=== PATIENT | male | born 1975 | race Caucasian/White ===

== ENCOUNTER 2017-12-24 10:22 | Day surgery (SDC) | payer BC ==
[~2017-12-24] VITALS: Ht 177.8 cm; Wt 74.4 kg
[2017-12-24] VITALS (10 sets, daily range): BP systolic 116–155; BP diastolic 73–95
[~2017-12-24 10:22] MED LIST: NKM
--- NOTE | 2017-12-24 11:06 | Anethesia Preoperative Eval ---
Anesthesia Pre-op PMH/ROS General Date of Evaluation: Dec 24, 2017 Anesthesiologist: Abad ASA Score: ASA 2 Mallampati Score Class I : Soft palate, uvula, fauces, pillars visible Class II: Soft palate, uvula, fauces visible Class III: Soft palate, base of uvula visible Class IV: Only hard plate visible Mallampati Classification: Class II Surgeon: Sarahy Diagnosis: Deviated Septum Surgical Procedure: Septoplasty, SMR BIlateral Anesthesia History: none Family History: no anesthesia problems Allergies: Coded Allergies: CEFOTETAN (Verified Allergy, Intermediate, 12/23/17) HIVES IBUPROFEN (Verified Allergy, Mild, 12/23/17) FACIAL WELTS PENICILLINS (Verified Allergy, Unknown, 12/23/17) CANNOT REMEMBER REACTION Medications: see eMAR Patient NPO?: Yes NPO Date: Dec 23, 2017 NPO Time: 22:00 Past Medical History Cardiovascular: Denies: HTN, CAD, HI, valve dz, arrhythmia, other Pulmonary: Denies: asthma, COPD, YUSEF, other Gastrointestinal/Genitourinary: Reports: other - h/o kidney cancer s/p partial nephrectomy; Denies: GERD, CRI, ESRD Neurologic/Psychiatric: Denies: dementia, CVA, depression/anxiety, TIA, other Endocrine: Denies: DM, hypothyroidism, steroids, other HEENT: Denies: cataract (L), cataract (R), glaucoma, S[place]O (L), S[place] (R), other Hematology/Immune: Denies: anemia, DVT, bleeding disorder, other Musculoskeletal/Integumentary: Denies: OA, RA, DJD, DDD, edema, other PSxH Narrative: appy, left partial nephrectomy Anesthesia Pre-op Phys. Exam Physician Exam see chart Constitutional: NAD Cardiovascular: RRR Respiratory: CTA Airway Exam Mallampati Score: Class II MO: full ROM: full Teeth: intact Anesthesia Pre-op A/P Labs see chart Studies Pre-op Studies: EKG - sr Risk Assessment & Plan Assessment: ASA II Plan: GA Status Change Before Surgery: No Pre-Antibiotics Drug: Levaquin 500mg Given Within 1 Hr of Incision: Yes Della Adkins MD Dec 24, 2017 11:06
[2017-12-24] MEDS ORDERED: Lidocaine 1% MPF 10mg/ml 5ml ONE (11:07)
[2017-12-24] MEDS ORDERED: Propofol 200mg/20ml IV ONE (11:07)
[2017-12-24] MEDS ORDERED: fentaNYL 100 mcg/2 mL IV ONE (11:07)
[2017-12-24] MEDS ORDERED: Midazolam 2mg/2ml Inj ONE (11:08)
--- NOTE | 2017-12-24 12:08 | Pre-Procedure Note/Attestation ---
Pre-Procedure Note/Attestation Complete Prior to Procedure Planned Procedure: not applicable Procedure Narrative: nasal obstruction unresponsive to medication, scheduled for septoplasty with bilateral inferior turbinectomies with intramural coagulation Indications for Procedure Pre-Operative Diagnosis: septal deviation, bilateral hypertrophied inferior turbinates Attestation I attest that I discussed the nature of the procedure; its benefits; risks and complications; and alternatives (and the risks and benefits of such alternatives ), prior to the procedure, with the patient (or the patient's legal door to door sales representative). I attest that, if there was a reasonable possibility of needing a blood transfusion, the patient (or the patient's legal door to door sales representative) was given the [place] [facility] [employer] [facility] standardized written summary, pursuant to the [place] Blood Safety Act ([place] Health and Safety Code # 1645, as amended). I attest that I re-evaluated the patient just prior to the surgery and that there has been no change in the patient's H&P, except as documented below: Zak Weathers MD Dec 24, 2017 12:08
[2017-12-24] MEDS ORDERED: Zemuron 50mg/5ml Inj IV ONE (12:36)
[2017-12-24] MEDS ORDERED: Lidocaine 1% 10mg/ml/Epi 0.005mg/ml 30ml vial INJ ONE (12:38)
[2017-12-24] MEDS ORDERED: Kenalog-40 1ml Vial ONE (12:38)
[2017-12-24] MEDS ORDERED: Oxymetazoline 0.05% Na Spray 30ml NASAL ONE (12:38)
[2017-12-24] MEDS ORDERED: Betadine 10% Oint 30gm TOPIC ONE (12:38)
[2017-12-24] MEDS ORDERED: Bacitracin Oint 15gm Tube TOPIC ONE (12:38)
[2017-12-24] MEDS ORDERED: Cocaine HCl 4% 4ml vial TOPIC ONE (12:43)
[2017-12-24] MEDS ORDERED: Lidocaine 1% 10mg/ml/EPI 0.01mg/ml 50ml INJ ONE (12:57)
[2017-12-24] MEDS ORDERED: LR 1000ml 1,000 ML IVLG SCH (13:08)
[2017-12-24] MEDS ORDERED: Hydromorphone 0.5mg/0.5ml inj IVP PRN (13:15)
[2017-12-24] MEDS ORDERED: Midazolam 2mg/2ml Inj IVP PRN (13:15)
[2017-12-24] MEDS ORDERED: DiphenhydrAMINE 50mg/ml Inj IVP PRN (13:15)
[2017-12-24] MEDS ORDERED: LORazepam Inj 2mg/ml 1ml IV PRN (13:15)
[2017-12-24] MEDS ORDERED: Metoclopramide 10mg/2ml Inj IVP PRN (13:15)
[2017-12-24] MEDS ORDERED: fentaNYL 100 mcg/2 mL IV PRN (13:15)
[2017-12-24] MEDS ORDERED: NS Irrig 1000ml IRRIG ONE (13:19)
--- NOTE | 2017-12-24 15:02 | Brief Operative Note ---
Immediate Post Operative Note Operative Note Pre-op Diagnosis: septal deviation, bilateral hypertrophied inferior turbinates Procedure: septoplasty, bilateral inferior turbinectomies with intramural coagulation Post-op Diagnosis: same as pre-op Surgeon: Zak Weathers Anesthesiologist: Abad Anesthesia: general, MAC Specimen: yes - septum Complications: none Condition: stable Fluids: ringers lactate Estimated Blood Loss: minimal Drains: none Packing: telfa Implant(s) used?: No Zak Weathers MD Dec 24, 2017 15:02
[2017-12-24] MEDS ORDERED: Glycopyrrolate 0.2mg/ml 1ml Vial ONE (15:08)
--- NOTE | 2017-12-24 15:19 | Immediate Post-Op Evaluation ---
Immediate Post-Op Evalulation Immediate Post-Op Evalulation Procedure: Septoplasty TURBS Date of Evaluation: Dec 24, 2017 Time of Evaluation: 15:05 IV Fluids: 1.2L Blood Products: 0 Estimated Blood Loss: min Urinary Output: 0 Blood Pressure Systolic: 155 Blood Pressure Diastolic: 95 Pulse Rate: 75 Respiratory Rate: 15 O2 Sat by Pulse Oximetry: 96 Temperature (Fahrenheit): 97.7 Pain Score (1-10): 0 Nausea: No Vomiting: No Complications 0 Patient Status: awake, reacts, patent, none Hydration Status: adequate Drug: LEvaqiom 500mg Given Within 1 Hr of Incision: Yes Time Given: 12:50 Della dAkins MD Dec 24, 2017 15:19
--- NOTE | 2017-12-24 15:20 | 48 Hour Post Anesthesia Eval ---
Post Anesthesia Evaluation Procedure: Septoplasty TURBS Date of Evaluation: Dec 24, 2017 Airway: patent Nausea: No Vomiting: No Pain Intensity: 0 Hydration Status: adequate Cardiopulmonary Status: at baseline Mental Status/LOC: patient returned to baseline Post-Anesthesia Complications: 0 Follow-up care needed: ready to discharge Della Adkins MD Dec 24, 2017 15:20
--- NOTE | 2017-12-26 22:45 | Operative Note - Dictated ---
DATE OF OPERATION: 12/24/2017 SURGEON: Zak Weathers M.D. ANESTHESIOLOGIST: Dr. Valdovinos. PREOPERATIVE DIAGNOSES: 1. Septal deviation. 2. Bilateral hypertrophied inferior turbinates. POSTOPERATIVE DIAGNOSES: 1. Septal deviation. 2. Bilateral hypertrophied inferior turbinates. PROCEDURES: 1. Septoplasty. 2. Bilateral inferior turbinectomies with intramural coagulation. INDICATIONS FOR SURGERY: The patient is a 42-year-old male, who has complained of severe right nasal obstruction greater than the left, unresponsive to medication. His examination revealed a severe right septal deviation and hypertrophied right inferior turbinate to such extent that the septum was pushing up against the turbinate and trapping mucus within the right nasal cavity. The left inferior turbinate was also significantly hypertrophied contributing to the patient's left nasal airway obstruction. PROCEDURE AND FINDINGS: The patient was brought to the operating room while premedicated and have received preoperative antibiotics. He was then placed in supine position on the operating room table. After the patient underwent satisfactory endotracheal intubation, he was given IV sedation. The nasal cavity was then sprayed with 0.25% Ajay-Synephrine. Sterile Q-tips saturated with Betadine were used to remove the trapped intranasal mucus as well as sterilize the intranasal cavity. Approximately 20 mL of 1% Xylocaine with 1:100,000 epinephrine were used to inject the nasal and septal frameworks. Less than 200 mg of cocaine were used in nasal packing. It was of note that the right side of the septum was fixed to the underlying cartilage making it very difficult to inject. The patient was then prepped and draped in usual fashion. After the lapse for vasoconstriction, the packing was removed. A right inferior septal incision was then made and a right mucoperichondrial mucoperiosteal flap was eventually elevated running into thick scar tissue which was caught in between areas of cartilage which may represent for a prior septal hematoma. An incision was made between the cartilage and bony septum and a left mucoperiosteal flap was then elevated. That portion of overriding obstructing perpendicular plate of the ethmoid and vomer bone were incised in strips and from many attachments and removed from the field of operation. A similar procedure was performed on the cartilaginous septum which was hard to incise as part of the cartilaginous septum had been ossified. The cartilaginous resection maintained good anterior and inferior support. An obstruction spur was removed with mallet and chisel technique. Re-examination now revealed a septum being in more midline physiologic position for breathing. Bipolar intramural coagulation of both inferior turbinates was then performed. An incision was performed and the undersurface of both inferior turbinates and mucosa were stripped to the underlying bone. The inferior turbinates were then outfractured and small bones removed from the pocket. Re-examination now revealed the patient to have a good bilateral nasal airway. All blood was suctioned from the nasopharynx area. A 4-0 plain was used to close the septal incision as well as to splint the septum. Telfa coated with bacitracin ointment was secured intranasally with suture of 3-0 silk to the Telfa and the procedure was terminated. The patient tolerated the procedure well and left the operating room in satisfactory condition. Estimated blood loss was 30 mL. Sponge and needle count were correct. Zak Weathers M.D. DR: Sylvain JOB#: [id number] CC:
== END 2017-12-24 16:35 | disposition home or self-care (01) ==
LOC: SUR 10:22
DX: J34.2 Deviated nasal septum (principal); J34.3 Hypertrophy of nasal turbinates; Z88.0 Allergy status to penicillin; Z88.6 Allergy status to analgesic agent; Z85.528 Personal history of other malignant neoplasm of kidney; Z90.5 Acquired absence of kidney; Z90.89 Acquired absence of other organs
CPT/HCPCS: 30140; 30520; J1170; J1956; J2250; J2704; J3010